=== PATIENT | female | born 1945 | race Caucasian/White ===

== ENCOUNTER 2017-10-27 01:53 | Emergency (ER) | END 2017-10-27 06:43 | disposition home or self-care (01) ==

== ENCOUNTER 2018-02-08 13:16 | Emergency (ER) | END 2018-02-08 14:14 | disposition home or self-care (01) ==

== ENCOUNTER 2018-05-11 17:20 | Emergency (ER) | END 2018-05-11 18:57 | disposition home or self-care (01) ==